=== PATIENT | female | born 1965 ===

== ENCOUNTER 2018-12-09 09:30 | Inpatient (IN) | payer OTHER ==
[~2018-12-09] VITALS: Ht 175.3 cm; Wt 76.2 kg
[2018-12-09] MEDS ORDERED: LEVOTH PO (11:47)
[2018-12-09] MEDS ORDERED: EFFEXOR XR150 MG PO (11:47)
[2018-12-09] MEDS ORDERED: LIPITOR20 MG PO (11:47)
[2018-12-09] MEDS ORDERED: LATANOPROST2.5 ML OP (11:48)
[2018-12-15] MEDS ORDERED: LEVOTHYROXINE50 MCG PO (08:00)
[2018-12-18] MEDS ORDERED: NAPR500T14 PO (10:39)
[2018-12-18] MEDS ORDERED: CODE1TAB37 PO (10:39)
== END 2018-12-18 11:01 | disposition home or self-care (01) | DRG 743 ==
LOC: O/R 09:30 → OB/GYN 12-15 05:52 → O/R 12-15 05:52 → SURH 12-15 09:30 → OB/GYN 12-15 13:31
PROVIDERS: ADMIT Obstetrics & Gynecology
PROC: 0UT70ZZ Resection of Bilateral Fallopian Tubes, Open Approach (ICD-10-PCS; 2018-12-15)
PROC: 0UT20ZZ Resection of Bilateral Ovaries, Open Approach (ICD-10-PCS; 2018-12-15)
PROC: 0TJB8ZZ Inspection of Bladder, Via Natural or Artificial Opening Endoscopic (ICD-10-PCS; 2018-12-15)
PROC: 0UT90ZZ Resection of Uterus, Open Approach (ICD-10-PCS; principal; 2018-12-15 11:15)
DX: D25.1 Intramural leiomyoma of uterus (principal); D25.0 Submucous leiomyoma of uterus; D25.2 Subserosal leiomyoma of uterus; N84.0 Polyp of corpus uteri; N80.2 Endometriosis of fallopian tube; I10 Essential (primary) hypertension